=== PATIENT | male | born 1965 | race Caucasian/White ===

== ENCOUNTER 2016-09-25 13:40 | Emergency (ER) | payer OTHER ==
[~2016-09-25] VITALS: Ht 182.9 cm; Wt 117.9 kg
[2016-09-25] MEDS ORDERED: PROAIR HFA8.5 GM INH (14:11)
[2016-09-25] MEDS ORDERED: CODEINE-GUAIFE120 M1 PO (14:12)
[2016-09-25] MEDS ORDERED: MONTELUKAST SOD10 M1 PO (14:12)
--- NOTE | 2016-09-25 14:19 | ED GENERAL ADULT ---
History of Present Illness General Chief Complaint: General Adult Stated Complaint: SOB, LT SIDE RIB PAIN S/P FALL Source: patient Exam Limitations: no limitations Vital Signs & Intake/Output Vital Signs & Intake/Output Vital Signs Date Time Temp Pulse Resp B/P B/P Pulse O2 O2 Flow FiO2 Mean Ox Delivery Rate 09/25 1635 98.7 72 18 139/76 96 09/25 1550 96 Room Air 09/25 1354 97.7 74 18 152/106 96 Room Air Allergies Coded Allergies: Penicillins (ANAPHILACTIC 09/25/16) Reconcile Medications Albuterol Sulfate (Proair Hfa) 90 MCG HFA.AER.AD 2 PUF INH Q4-6 PRN PRN SHORTNESS OF BREATH (Reported) Codeine Phosphate/Guaifenesi (Codeine-Guaifen 10-100 MG/5 Ml) 10 MG-100 MG/5 ML LIQUID 10 ML PO Q6-PRN PRN COUGH (Reported) Hydrocodone/Acetaminophen ([place] 5-325 Tablet) 5 MG-325 MG TABLET 1-2 TAB PO Q4-6 PRN PRN PAIN Montelukast Sodium 10 MG TABLET 1 TAB PO QPM ALLER] (Reported) Triage Note: PT TO TRIAGE WITH C/O LEFT SIDED RIB CAGE PAIN AND L SHOULDER PAIN S/P MECHANICAL FALL 5 DAYS AGO, DENIES HEADSTRIKE. ALSO PT C/O 2 EPISODES OF DIZZINESS TODAY AT WORK AND SOB SINCE THE FALL. Triage Nurses Notes Reviewed? yes Onset: Gradual Duration: day(s): (6) Timing: no prior history Injury Environment: home Severity: moderate Severity Numbers: 7 Modifying Factors: Improves With: immobilization. Worsens With: movement. HPI: Patient is a 50-year-old male presenting to the emergency department with family members with chief complaint of left shoulder, left-sided rib pain and dizziness. Symptoms started initially when he accidentally fell off of his forefoot deck 6 days ago. He landed directly on his left shoulder and left ribs. No head injury, no loss of consciousness. Denies any neck pain or back pain. He reports that when he fell initially he got the wind knocked out of him , but was able to recover. Over the past couple days he's noticed intermittent dizziness that lasts approximately 10-15 minutes, comes on randomly but he did notice it is worse with positional changes. He feels that he feels like he can' t take a deep breath in and gets anxious about it and then he starts getting dizzy. No headaches. Denies any visual changes. Feels like the room is spinning when the dizziness comes on. This morning when he was getting an episode of his dizziness he also experienced some chest pressure. He was unsure if this is secondary to him being anxious. It is at that point he decided to come in for evaluation. Has been taking aynf-pir-qeabwle Tylenol with little relief in his rib or shoulder pain. Shoulder pain is achy and throbbing worse with range of motion.ALSO REPORTS RECENT UPPER RESPIRATORY INFECTION WHICH he has been treated for. No ringing in his ears. Denies change in hearing. (CINTHIA COATES) Past History Travel History Traveled to [place] past 21 day No Medical History Any Pertinent Medical History? see below for history Respiratory: asthma Surgical History Surgical History: none Psychosocial History What is your primary language Italian Tobacco Use: Never used Family History Hx Contributory? No (CINTHIA COATES) Review of Systems Review of Systems Constitutional: Reports: no symptoms. Comments Review of systems: See HPI, All other systems negative. Constitutional, no chills fever or weight loss HEENT: No visual changes no sore throat no congestion Cardiovascular: No palpitation , orthopnea or ankle swelling Skin, no jaundice no rashes Respiratory: No cough sputum or hemoptysis GI: No nausea no vomiting : No dysuria No hematuria Muscle skeletal: no back pain, no neck pain, Neurologic: No numbness no confusion NO MURRAY Psych: No stress anxiety or depression,. Heme/endocrine: No bruising no bleeding no polyuria or polydipsia Immunology: No splenectomy or history of AIDS (CINTHIA COATES) Physical Exam Physical Exam General Appearance: well developed/nourished, no apparent distress, alert, awake , comfortable Comments: Well-developed well-nourished person in no acute distress HEENT: Normal EENT exam, extraocular motion intact, no nystagmus. Pupils equally round and reactive to light and accommodation. Nose is atraumatic. External auditory canal and Tympanic membranes clear. Pharynx normal. No swelling or edema. Neck: Supple, no lymphadenopathy, normal range of motion without pain or tenderness, no C-spine tenderness. Full range of motion. Back: Nontender, no CVA tenderness. Full range of motion Cardiovascular: Regular rate and rhythms no murmurs rubs or gallops, normal JVP Respiratory: Chest is tender to palpation over the distal anterior ribs and the distal lateral rib. No bruising or signs of trauma.. No respiratory distress.breath sounds clear to auscultation bilaterally Abdomen: Soft, nontender nondistended, no appreciable organomegaly. Normal bowel sounds. No ascites, no rebound or guarding. Extremity: No edema, no calf tenderness to palpation, normal and equal pulses. Full range of motion of upper and lower extremities without difficulty or pain. Audio Production Engineer strength is equal and symmetric bilaterally. Muscular strength is 5 out of 5 in upper and lower extremities. Neuro: Alert oriented x3, motor sensory normal, cranial nerves II through XII grossly intact. Cerebellar testing is unremarkable. Finger to nose testing without difficulty. Skin: No appreciable rash on exposed skin, skin is warm and dry. Psych: Mood and affect is normal, memory and judgment is normal. Core Measures ACS in differential dx? Yes CVA/TIA Diagnosis: No Severe Sepsis Present: No Septic Shock Present: No (SARAH PRAKASH,CINTHIA) Progress Differential Diagnoses I considered the following diagnoses in my evaluation of the patient: Rib fracture, pneumothorax, pulmonary embolus, ACS, anxiety, rib contusion, viral labyrinthitis, vertigo Plan of Care: Orders Procedure Date/time Status MISTAKE 09/25 1430 Active Telemetry/French Cord Binder 09/25 1430 Active TROPONIN LEVEL 09/25 1430 Complete PARTIAL THROMBOPLASTIN TIME 09/25 1430 Complete PROTHROMBIN TIME 09/25 1430 Complete COMPREHENSIVE METABOLIC PANEL 09/25 1430 Complete CBC WITHOUT DIFFERENTIAL 09/25 1430 Complete EKG 09/25 1430 Active Laboratory Tests 09/25/16 1500: Anion Gap 13, Estimated GFR > 60, BUN/Creatinine Ratio 24.4, Glucose 106 H, Calcium 9.4, Total Bilirubin 0.7, AST 25, ALT 54, Alkaline Phosphatase 70, Troponin I < 0.01, Total Protein 7.4, Albumin 4.3, Globulin 3.1, Albumin/ Globulin Ratio 1.4, PT 12.3, INR 1.17, APTT 31, CBC w Diff NO MAN DIFF REQ, RBC 4.64 L, MCV 95.8 H, MCH 32.6 H, RDW 13.0, MPV 7.9, Gran % 54.2, Lymphocytes % 34.0, Monocytes % 8.0, Eosinophils % 3.5, Basophils % 0.3, Absolute Granulocytes 3.8, Absolute Lymphocytes 2.4, Absolute Monocytes 0.6, Absolute Eosinophils 0.2, Absolute Basophils 0, PUBS MCHC 34.0 Diagnostic Imaging: Viewed by Me: Radiology Read, CT Scan. Discussed w/RAD: Radiology Read, CT Scan. Radiology Impression: PATIENT: ALTHEA CONNOR PRESENT AGE: 50 PATIENT ACCOUNT NO: [id number] : [birth year] LOCATION: [facility] ORDERING PHYSICIAN: CINTHIA PRAKASH SERVICE DATE: 09/25/16 EXAM TYPE: CAT - CTA CHEST-PULMONARY EMBOLISM EXAMINATION: CT ANGIOGRAM OF THE CHEST WITH AND WITHOUT CONTRAST (CT PULMONARY ANGIOGRAM FOR PE) CLINICAL INFORMATION: Dizzy and rib pain status post trauma. Evaluate for PE and left rib fracture. COMPARISON: Chest x-ray 09/03/2016. TECHNIQUE: Prior to contrast administration, noncontrast localization images were obtained. Subsequently, multidetector volumetric imaging was performed from the thoracic inlet to below the diaphragms following the administration of 95 mL Omnipaque 350 intravenous contrast. No contrast reaction reported. Sagittal, coronal, and MIP oblique sagittal reformatted images were obtained on the CT workstation, uploaded to PACS, and reviewed. Total exam dose-length product 608.39 mGy-cm. FINDINGS: QUALITY OF STUDY/ CONTRAST BOLUS: Satisfactory PULMONARY ARTERIES: No central or segmental pulmonary emboli. THORACIC AORTA: No aneurysm or dissection. LUNG: No focal consolidation, nodules or masses. PLEURA: No pleural effusion or pneumothorax. MEDIASTINUM: Normal heart size. No pericardial effusion. No hilar or mediastinal lymphadenopathy. No evidence of septal bowing or right heart strain. CHEST WALL/ AXILLA: No axillary or internal mammary lymphadenopathy. OSSEOUS STRUCTURES: No acute or suspicious osseous abnormality. UPPER ABDOMEN: Unremarkable. No reflux of contrast into the hepatic veins to suggest elevated right heart pressures. IMPRESSION: 1. No evidence of pulmonary emboli. 2. No evidence of rib fracture. 3. No other abnormalities. VTE: NEGATIVE DICTATED BY: TASHIA ENGLAND MD DATE/ TIME DICTATED:09/25/161612 PANCAKE PROFESSIONAL:GARO DATE/TIME TRANSCRIBED: 09/25/161612 CONFIDENTIAL, DO NOT COPY WITHOUT APPROPRIATE AUTHORIZATION. < Electronically signed in Other Vendor System> CXR Impression: PATIENT: ALTHEA CONNOR PRESENT AGE: 50 PATIENT ACCOUNT NO: [id number] : 69 LOCATION: [facility] ORDERING PHYSICIAN: CINTHIA PRAKASH SERVICE DATE: 09/25/16-143 EXAM TYPE: RAD - XRY- SHOULDER COMPLETE-LEFT EXAMINATION: XR SHOULDER, LEFT CLINICAL INFORMATION: Pain status post fall COMPARISON: None TECHNIQUE: AP external rotation, Grashey, scapular Y, and axillary views of the left shoulder. FINDINGS: There is no fracture or dislocation. The humeral head articulates appropriately with the glenoid. The joint space is mildly narrowed. The acromioclavicular joint is intact with mild degenerative change. The visualized lung is clear. IMPRESSION: No fracture or malalignment. Mild degenerative changes at the left shoulder. DICTATED BY: KESHAWN NATH MD DATE/TIME DICTATED:09/25/161446 PANCAKE PROFESSIONAL:GARO DATE/TIME TRANSCRIBED:09/25/161446 CONFIDENTIAL, DO NOT COPY WITHOUT APPROPRIATE AUTHORIZATION. <Electronically signed in Other Vendor System> SIGNED BY: PHAM WEST,KESHAWN 09/25/16 3509 Initial ED EKG: SINUS RHYTHM AT 71 BPM Comments: Patient Is awake alert and oriented, no neurological deficits on exam. Cerebellar function on exam is normal. Is within normal range. We'll assess for rib fracture, pulmonary embolus with CTA. Patient will also have chest x- ray to rule out cardiomegaly. CBC, CMP, troponin. Declines pain medication. He does have reproducible pain over the left ribs, no ecchymosis. 09/25/2016 5:07:43 PMPatient informed of all lab work results and imaging study results. Patient denies any repeated dizzy episodes here in the emergency department. He did recently have an upper respiratory infection for which she was treated for, this could be attributing TO dizziness. Educated on how to use incentive spirometer. Patient will go home with pain medication for likely rib contusion. He will follow-up the primary care physician or return for worsening symptoms or concerns. (SARAH PRAKASH,CINTHIA) Departure Departure Time of Disposition: 1650 Disposition: HOME OR SELF CARE Condition: Stable Clinical Impression Primary Impression: Rib contusion Qualifiers: Encounter type: initial encounter Laterality: left Qualified Code: S20.212A - Contusion of left front wall of thorax, initial encounter Referrals: GAGANDEEP BRYANT MD (PCP/Family) Additional Instructions: Follow-up with your primary care physician call to make an appointment. Use incentive spirometer to help take deep breaths. Take anti-inflammatories over- the-counter such as Advil or ibuprofen to help with any pain and inflammation. Increase fluid intake. Return for worsening symptoms or concerns. PATIENT: ALTHEA CONNOR PRESENT AGE: 50 PATIENT ACCOUNT NO: [id number] : 69 LOCATION: [facility] ORDERING PHYSICIAN: CINTHIA PRAKASH SERVICE DATE: 09/25/16 EXAM TYPE: CAT - CTA CHEST-PULMONARY EMBOLISM EXAMINATION: CT ANGIOGRAM OF THE CHEST WITH AND WITHOUT CONTRAST (CT PULMONARY ANGIOGRAM FOR PE) CLINICAL INFORMATION: Dizzy and rib pain status post trauma. Evaluate for PE and left rib fracture. COMPARISON: Chest x-ray 09/03/2016. TECHNIQUE: Prior to contrast administration, noncontrast localization images were obtained. Subsequently, multidetector volumetric imaging was performed from the thoracic inlet to below the diaphragms following the administration of 95 mL Omnipaque 350 intravenous contrast. No contrast reaction reported. Sagittal, coronal, and MIP oblique sagittal reformatted images were obtained on the CT workstation, uploaded to PACS, and reviewed. Total exam dose-length product 608.39 mGy-cm. FINDINGS: QUALITY OF STUDY/CONTRAST BOLUS: Satisfactory PULMONARY ARTERIES: No central or segmental pulmonary emboli. THORACIC AORTA: No aneurysm or dissection. LUNG: No focal consolidation, nodules or masses. PLEURA: No pleural effusion or pneumothorax. MEDIASTINUM: Normal heart size. No pericardial effusion. No hilar or mediastinal lymphadenopathy. No evidence of septal bowing or right heart strain. CHEST WALL/AXILLA: No axillary or internal mammary lymphadenopathy. OSSEOUS STRUCTURES: No acute or suspicious osseous abnormality. UPPER ABDOMEN: Unremarkable. No reflux of contrast into the hepatic veins to suggest elevated right heart pressures. IMPRESSION: 1. No evidence of pulmonary emboli. 2. No evidence of rib fracture. 3. No other abnormalities. VTE: NEGATIVE DICTATED BY: TASHIA ENGLAND MD DATE/TIME DICTATED:09/25/161612 PANCAKE PROFESSIONAL:GARO DATE/TIME TRANSCRIBED:09/25/161612 CONFIDENTIAL, DO NOT COPY WITHOUT APPROPRIATE AUTHORIZATION. <Electronically signed in Other Vendor System> SIGNED BY: TASHIA ENGLAND MD 1631 Departure Forms: Customer Survey General Discharge Information Prescriptions: Current Visit Scripts Hydrocodone/Acetaminophen ([place] 5-325 Tablet) 1-2 TAB PO Q4-6 PRN PRN PAIN #10 TAB (CINTHIA COATES) PA/AUTOMATION ENGINEERING MANAGER Co-Sign Statement Statement: ED Attending supervision documentation- [] I saw and evaluated the patient. I have also reviewed all the pertinent lab results and diagnostic results. I agree with the findings and the plan of care as documented in the PA's/AUTOMATION ENGINEERING MANAGER's documentation. [X] I have reviewed the ED Record and agree with the PA's/AUTOMATION ENGINEERING MANAGER's documentation. [] Additions or exceptions (if any) to the PAs/AUTOMATION ENGINEERING MANAGER's note and plan are summarized below: [] (ABHISHEK WEST,VERNA) Critical Care Note Critical Care Note Critical Care Time: non-applicable (CINTHIA COATES)
--- NOTE | 2016-09-25 14:52 | RADIOLOGY REPORT ---
EXAMINATION: XR SHOULDER, LEFT CLINICAL INFORMATION: Pain status post fall COMPARISON: None TECHNIQUE: AP external rotation, Grashey, scapular Y, and axillary views of the left shoulder. FINDINGS: There is no fracture or dislocation. The humeral head articulates appropriately with the glenoid. The joint space is mildly narrowed. The acromioclavicular joint is intact with mild degenerative change. The visualized lung is clear. IMPRESSION: No fracture or malalignment. Mild degenerative changes at the left shoulder.
[2016-09-25 15:12] LABS: ABSOLUTE BASOPHIL COUNT 0 /CUMM (0.0-0.2); ABSOLUTE EOSINOPHIL COUNT 0.2 /CUMM (0.0-0.7); ABSOLUTE GRANULOCYTE CT 3.8 /CUMM (1.4-6.5); ABSOLUTE LYMPH COUNT 2.4 /CUMM (1.2-3.4); ABSOLUTE MONOCYTE COUNT 0.6 /CUMM (0.10-0.60); BASOPHIL % 0.3 % (0.0-2.0); EOSINOPHIL % 3.5 % (0-5); GRANULOCYTE % 54.2 % (42.2-75.2); HEMATOCRIT 44.4 % (42-52); MEAN CORPUSCULAR HGB 32.6 PG (27.0-31.0); MEAN CORPUSCULAR VOLUME 95.8 FL (80.0-94.0); MEAN PLATELET VOLUME 7.9 FL (7.4-10.4); PLATELET COUNT 221 /CUMM (130-400); RED BLOOD CELL CT 4.64 /CUMM (4.70-6.10); WHITE BLOOD CELL COUNT 7.1 /CUMM (4.8-10.8)
[2016-09-25 15:19] LABS: PT 12.3 SEC (9.4-12.5); PTT 31 SEC (25-37)
--- NOTE | 2016-09-25 16:31 | CT SCAN REPORT ---
EXAMINATION: CT ANGIOGRAM OF THE CHEST WITH AND WITHOUT CONTRAST (CT PULMONARY ANGIOGRAM FOR PE) CLINICAL INFORMATION: Dizzy and rib pain status post trauma. Evaluate for PE and left rib fracture. COMPARISON: Chest x-ray 09/03/2016. TECHNIQUE: Prior to contrast administration, noncontrast localization images were obtained. Subsequently, multidetector volumetric imaging was performed from the thoracic inlet to below the diaphragms following the administration of 95 mL Omnipaque 350 intravenous contrast. No contrast reaction reported. Sagittal, coronal, and MIP oblique sagittal reformatted images were obtained on the CT workstation, uploaded to PACS, and reviewed. Total exam dose-length product 608.39 mGy-cm. FINDINGS: QUALITY OF STUDY/CONTRAST BOLUS: Satisfactory PULMONARY ARTERIES: No central or segmental pulmonary emboli. THORACIC AORTA: No aneurysm or dissection. LUNG: No focal consolidation, nodules or masses. PLEURA: No pleural effusion or pneumothorax. MEDIASTINUM: Normal heart size. No pericardial effusion. No hilar or mediastinal lymphadenopathy. No evidence of septal bowing or right heart strain. CHEST WALL/AXILLA: No axillary or internal mammary lymphadenopathy. OSSEOUS STRUCTURES: No acute or suspicious osseous abnormality. UPPER ABDOMEN: Unremarkable. No reflux of contrast into the hepatic veins to suggest elevated right heart pressures. IMPRESSION: 1. No evidence of pulmonary emboli. 2. No evidence of rib fracture. 3. No other abnormalities. VTE: NEGATIVE
[2016-09-25 16:35] VITALS: BP 139/76
[2016-09-25] MEDS ORDERED: NORCO 5-325 TA1 EACH PO (17:00)
== END 2016-09-25 17:07 ==
LOC: ERH 13:40
PROVIDERS: Physician Assistant
DX: S20.212A Contusion of left front wall of thorax, initial encounter (principal); R07.81 Pleurodynia; M25.512 Pain in left shoulder; R42 Dizziness and giddiness; W17.89XA Other fall from one level to another, initial encounter; Y93.9 Activity, unspecified; Y92.009 Unspecified place in unspecified non-institutional (private) residence as the place of occurrence of the external cause
CPT/HCPCS: 73030-LT; 93005; 93010